=== PATIENT | male | born 1990 | race Caucasian/White ===

== ENCOUNTER 2017-10-26 13:44 | Emergency (ER) | payer SELFPAY ==
--- NOTE | 2017-10-26 13:49 | EDM.PDOC ---
ED HPI GENERAL MEDICAL PROBLEM - General Chief Complaint: Back Pain or Injury Stated Complaint: PAIN RT LEG Time Seen by Provider: 10/26/17 13:45 Source of Information: Reports: Patient History Limitations: Reports: No Limitations - History of Present Illness INITIAL COMMENTS - FREE TEXT/NARRATIVE: History of present illness: []Patient had a jump in his 4 [employer] landed hard his back approximately 2 months ago. 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 Pain is now severe he cannot find a position of comfort is not sleeping well and numbness is worsening. He denies any urinary or fecal incontinence and is ambulatory with discomfort. Patient has a history of Qing- Schlatter and was given naproxen along time ago he felt a hot burning sensation on his skin after that and was told never to take it again. He does take aspirin and ibuprofen without any difficulty. Review of systems: As per history of present illness and below otherwise all systems reviewed and negative. Past medical history: As per history of present illness and as reviewed below otherwise noncontributory. Surgical history: As per history of present illness and as reviewed below otherwise noncontributory. Social history: No reported history of drug or alcohol abuse. Family history: As per history of present illness and as reviewed below otherwise noncontributory. Physical exam: General: Well developed, well nourished in NAD HEENT: Atraumatic, normocephalic, pupils reactive, negative for conjunctival pallor or scleral icterus, mucous membranes moist, throat clear, neck supple, nontender, trachea midline. Lungs: Clear to auscultation, breath sounds equal bilaterally, chest nontender. Heart: S1S2, regular, negative for clicks, rubs, or JVD. Abdomen: Soft, nondistended, nontender. Negative for masses or hepatosplenomegaly. Negative for costovertebral tenderness. Pelvis: Stable nontender. Genitourinary: Deferred. Rectal: Deferred. Extremities: Atraumatic, negative for cords or calf pain. Neurovascular unremarkable. Neuro: Awake, alert, oriented. Cranial nerves II through XII unremarkable. Cerebellum unremarkable. Motor and sensory unremarkable throughout. Exam nonfocal. Diagnostics: [] Therapeutics: []Flexeril and Toradol given him improvement Impression: []Low back pain with right-sided sciatica Plan: []Tramadol, Flexeril follow up with primary care Definitive disposition and diagnosis as appropriate pending reevaluation and review of above. Right Upper Posterior Leg Pain Score (Numeric/FACES): 8 - Related Data Allergies Allergy/AdvReac Type Severity Reaction Status Date / Time naproxen Allergy Nausea Verified 10/26/17 13:50 nickel Allergy Rash Verified 10/26/17 13:50 Home Meds: Home Meds Cyclobenzaprine [Flexeril] 10 mg PO BID PRN #16 tab 10/26/17 [Rx] traMADol [Ultram] 50 mg PO Q6H PRN #20 tab 10/26/17 [Rx] ED ROS GENERAL - Review of Systems Review Of Systems: See Below (See history of present illness) ED EXAM,LOWER BACK PAIN/INJURY - Physical Exam Exam: See Below (See history of present illness) Course - Vital Signs Last Recorded V/S: Last Vital Signs Temp 97.0 F 10/26/17 13:50 Pulse 66 10/26/17 14:40 Resp 16 10/26/17 14:40 BP 116/74 10/26/17 14:40 Pulse Ox 98 10/26/17 14:40 - Orders/Labs/Meds Meds: Medications Discontinued Medications Generic Name Dose Route Start Last Admin Trade Name Freq PRN Reason Stop Dose Admin Cyclobenzaprine HCl 10 mg 10/26/17 14:01 10/26/17 14:10 Flexeril PO 10/26/17 14:02 10 mg ONETIME ONE Administration Ketorolac Tromethamine 60 mg 10/26/17 14:01 10/26/17 14:10 Toradol IM 10/26/17 14:02 60 mg ONETIME ONE Administration Departure - Departure Time of Disposition: 14:22 Disposition: Home, Self-Care 01 Condition: Good Clinical Impression: Acute right-sided low back pain with right-sided sciatica - Discharge Information Prescriptions: Cyclobenzaprine [Flexeril] 10 mg PO BID PRN #16 tab PRN Reason: Pain traMADol [Ultram] 50 mg PO Q6H PRN #20 tab PRN Reason: Pain Instructions: Sciatica, [id number], Back Pain, Adult, [id number] Referrals: PCP,None [Primary Care Provider] - Forms: ED Department Discharge Additional Instructions: The following information is given to patients seen in the emergency department who are being discharged to home. This information is to outline your options for follow-up care. We provide all patients seen in our emergency department with a follow-up referral. The need for follow-up, as well as the timing and circumstances, are variable depending upon the specifics of your emergency department visit. If you don't have a primary care physician on staff, we will provide you with a referral. We always advise you to contact your personal physician following an emergency department visit to inform them of the circumstance of the visit and for follow-up with them and/or the need for any referrals to a consulting specialist. The emergency department will also refer you to a specialist when appropriate. This referral assures that you have the opportunity for follow-up care with a specialist. All of these measure are taken in an effort to provide you with optimal care, which includes your follow-up. Under all circumstances we always encourage you to contact your private physician who remains a resource for coordinating your care. When calling for follow-up care, please make the office aware that this follow-up is from your recent emergency room visit. If for any reason you are refused follow-up, please contact the [facility] at and asked to speak to the emergency department charge nurse. Flexeril for spasm tramadol for pain as directed, ice to back follow-up with primary care return if symptoms worsen [facility] [address] [place] [id number]
[2017-10-26] MEDS ORDERED: Ketorolac 60 MG/2 ML SDV IM ONE (14:01)
[2017-10-26] MEDS ORDERED: Cyclobenzaprine 10 MG Tab PO ONE (14:01)
== END 2017-10-26 14:43 | disposition home or self-care (01) ==
LOC: MW.ED 13:44
DX: M54.41 Lumbago with sciatica, right side (principal); Z88.5 Allergy status to narcotic agent; Z91.048 Other nonmedicinal substance allergy status
CPT/HCPCS: 96372; 99283; A9270; J1885

== ENCOUNTER 2022-11-07 22:18 | Emergency (ER) | payer SELFPAY ==
[2022-11-07] MEDS ORDERED: Acetaminophen/oxyCODONE 325-5 MG Tab PO ONE (22:36)
[2022-11-07 23:00] LABS: APPEARANCE,URINE CLEAR; BILIRUBIN,URINE NEGATIVE (NEGATIVE); GLUCOSE,URINE NEGATIVE (NEGATIVE); KETONES,URINE NEGATIVE (NEGATIVE); LEUKOCYTE ESTERASE,URINE NEGATIVE (NEGATIVE); NITRITE,URINE NEGATIVE (NEGATIVE); OCCULT BLOOD,URINE NEGATIVE (NEGATIVE); PROTEIN,URINE NEGATIVE (NEGATIVE); UROBILINOGEN,URINE 0.2 EU/dL (<2.0)
[2022-11-07 23:05] LABS: COLOR,URINE DARK YELLOW
== END 2022-11-07 23:15 | disposition left against medical advice (07) ==
LOC: MW.ED 22:18
DX: N50.811 Right testicular pain (principal); N50.812 Left testicular pain; Z88.8 Allergy status to other drugs, medicaments and biological substances; Z91.048 Other nonmedicinal substance allergy status
CPT/HCPCS: 81003; 99284; A9270; 99282